=== PATIENT | male | born 1960 | race Caucasian/White ===

== ENCOUNTER → 2024-04-24 | Day surgery (SDC) | payer OTHER ==
[~2024-04-24] VITALS: Ht 170.2 cm; Wt 111.3 kg
[~2024-04-24] MED LIST: ASMANEX TW0.22 MG/A1 IH; ASPIRIN E.C. 8181 MG PO; FLUORIDEX112 GM DT; LR 1,000 ML IV SCH; Lidocaine PF 2% (20 MG/ML) 5 ML VIAL ONE; MASON NATURAL2000 IU PO; Ondansetron 4 MG/2 ML VIAL IV PRN; PROTONIX 40MG T40 MG PO
[2024-04-24 08:32] VITALS: BP 123/90; PULSE 79; TEMP 96.7
[2024-04-24 09:55] VITALS: BP 115/74; PULSE 70
--- NOTE | 2024-04-24 09:55 | NUR ---
0955 PT ARRIVES TO [facility] VIA CART. PT WAS ASSISTED TO RECLINER WITH TWO STAFF. FAMILY PRESENT IN ROOM. 0959 PT GIVEN SNACK OF JUICE AND ICE CREAM. 1000 DR IN TO SEE PT AND FAMILY. 1010 DC INSTRUCTIONS GIVEN TO PT. 1020 INT DC'D INTACT WITH PRESSURE DRESSING APPLIED. 1030 PT TAKEN TO POV IN WHEELCHAIR
[2024-04-24 10:14] VITALS: BP 126/80; PULSE 78
== END ==
LOC: SDCO 03-27 08:30
DX: Z12.11 Encounter for screening for malignant neoplasm of colon (principal); D12.0 Benign neoplasm of cecum; K57.30 Diverticulosis of large intestine without perforation or abscess without bleeding; G47.33 Obstructive sleep apnea (adult) (pediatric); Z79.82 Long term (current) use of aspirin
CPT/HCPCS: J2704; J7120